=== PATIENT | female | born 1965 | race Caucasian/White ===

== ENCOUNTER 2017-01-17 20:36 | Emergency (ER) | payer OTHER ==
[~2017-01-17] VITALS: Ht 162.6 cm; Wt 65.0 kg
[2017-01-17 20:55] VITALS: BP 111/69; PULSE 85; RESP 16; TEMP 98.3; O2SAT 95
[2017-01-17] MEDS ORDERED: HALOPERIDOL LACTATE 5 MG/ML AMP IM ONE (21:00)
[2017-01-17] MEDS ORDERED: diphenhydrAMINE HCL 50 MG/ML VIAL IM ONE (21:00)
--- NOTE | 2017-01-17 21:09 | PD ---
HPI Chief Complaint: Psychiatric Symptoms Time Seen by Provider: 21:02 Travel History International Travel<30 days: No Contact w/Intl Traveler<30days: No Traveled to known affect area: No History of Present Illness HPI 51-year-old white female presents to emergency department under a Chan act by PD. Patient is heavily intoxicated. She is unable to give any meaningful history. According to the Chan act she had made homicidal and suicidal statements. Patient speech is very slurred. When asked questions she merely grabs at her neck. [facility] Past Medical History Medical History: Unable to Obtain Immunizations Current: Yes Tetanus Vaccination: Unknown Influenza Vaccination: No ?: Unknown Past Surgical History Surgical History: Unable to Obtain Social History Alcohol Use: Yes (socially) Tobacco Use: Yes Substance Use: No Allergies-Medications (Allergen,Severity, Reaction): Coded Allergies: No Known Allergies (Unverified , 01/17/17) Reported Meds & Prescriptions Reported Meds & Active Scripts Active No Active Prescriptions or Reported Medications Review of Systems ROS Limitations: Intoxication Physical Exam Narrative GENERAL: Well-nourished, well-developed patient. Smells of EtOH and appears intoxicated. SKIN: Warm and dry. HEAD: Normocephalic and atraumatic. EYES: No scleral icterus. No injection or drainage. ENT: No nasal drainage noted. Mucous membranes pink. Airway patent. NECK: Supple, trachea midline. Moves head freely without obvious discomfort. CARDIOVASCULAR: Regular rate and rhythm without murmurs, gallops, or rubs. RESPIRATORY: Breath sounds equal bilaterally. No accessory muscle use. GASTROINTESTINAL: Abdomen soft, non-tender, nondistended. EXTREMITIES: No cyanosis or edema. BACK: Nontender without obvious deformity. No CVA tenderness. NEURO: Patient is alert and oriented. no sensorimotor deficits. Ataxic with very slurred speech PSYCH: Unable to assess due to her level of intoxication Data Data Last Documented VS Vital Signs Date Time Temp Pulse Resp B/P Pulse Ox O2 Delivery O2 Flow Rate FiO2 01/17/17 20:55 98.3 85 16 111/69 95 Orders Haloperidol Inj (Haldol Inj) (01/17/17 21:00) Diphenhydramine Inj (Benadryl Inj) (01/17/17 21:00) Complete Blood Count With Diff (01/17/17 22:31) Comprehensive Metabolic Panel (01/17/17 22:31) Psych Screen (01/17/17 22:31) Drug Screen, Random Urine (01/17/17 22:31) Alcohol (Ethanol) (01/17/17 22:31) Salicylates (Aspirin) (01/17/17 22:31) Tylenol (Acetaminophen) (01/17/17 22:31) Labs Laboratory Tests Test 01/17/17 22:44 White Blood Count 3.9 TH/MM3 Red Blood Count 3.73 MIL/MM3 Hemoglobin 12.4 GM/DL Hematocrit 37.2 % Mean Corpuscular Volume 99.8 FL Mean Corpuscular Hemoglobin 33.2 PG Mean Corpuscular Hemoglobin 33.3 % Concent Red Cell Distribution Width 14.5 % Platelet Count 125 TH/MM3 Mean Platelet Volume 9.8 FL Neutrophils (%) (Auto) 40.4 % Lymphocytes (%) (Auto) 50.4 % Monocytes (%) (Auto) 6.5 % Eosinophils (%) (Auto) 2.0 % Basophils (%) (Auto) 0.7 % Neutrophils # (Auto) 1.6 TH/MM3 Lymphocytes # (Auto) 2.0 TH/MM3 Monocytes # (Auto) 0.3 TH/MM3 Eosinophils # (Auto) 0.1 TH/MM3 Basophils # (Auto) 0.0 TH/MM3 CBC Comment DIFF FINAL Differential Comment Sodium Level 143 MEQ/L Potassium Level 3.2 MEQ/L Chloride Level 109 MEQ/L Carbon Dioxide Level 25.4 MEQ/L Anion Gap 9 MEQ/L Blood Urea Nitrogen 6 MG/DL Creatinine 0.53 MG/DL Estimat Glomerular Filtration 121 ML/MIN Rate Random Glucose 78 MG/DL Calcium Level 7.9 MG/DL Total Bilirubin 0.4 MG/DL Aspartate Amino Transf 104 U/L (AST/SGOT) Alanine Aminotransferase 85 U/L (ALT/SGPT) Alkaline Phosphatase 106 U/L Total Protein 7.7 GM/DL Albumin 2.9 GM/DL Salicylates Level LESS THAN 1.7 MG/DL Acetaminophen Level LESS THAN 2.0 MCG/ML Ethyl Alcohol Level 237 MG/DL MDM Medical Decision Making Medical Screen Exam Complete: Yes Emergency Medical Condition: Yes Medical Record Reviewed: Yes Interpretation(s) Laboratory Tests Test 01/17/17 22:44 White Blood Count 3.9 TH/MM3 Red Blood Count 3.73 MIL/MM3 Hemoglobin 12.4 GM/DL Hematocrit 37.2 % Mean Corpuscular Volume 99.8 FL Mean Corpuscular Hemoglobin 33.2 PG Mean Corpuscular Hemoglobin 33.3 % Concent Red Cell Distribution Width 14.5 % Platelet Count 125 TH/MM3 Mean Platelet Volume 9.8 FL Neutrophils (%) (Auto) 40.4 % Lymphocytes (%) (Auto) 50.4 % Monocytes (%) (Auto) 6.5 % Eosinophils (%) (Auto) 2.0 % Basophils (%) (Auto) 0.7 % Neutrophils # (Auto) 1.6 TH/MM3 Lymphocytes # (Auto) 2.0 TH/MM3 Monocytes # (Auto) 0.3 TH/MM3 Eosinophils # (Auto) 0.1 TH/MM3 Basophils # (Auto) 0.0 TH/MM3 CBC Comment DIFF FINAL Differential Comment Sodium Level 143 MEQ/L Potassium Level 3.2 MEQ/L Chloride Level 109 MEQ/L Carbon Dioxide Level 25.4 MEQ/L Anion Gap 9 MEQ/L Blood Urea Nitrogen 6 MG/DL Creatinine 0.53 MG/DL Estimat Glomerular Filtration 121 ML/MIN Rate Random Glucose 78 MG/DL Calcium Level 7.9 MG/DL Total Bilirubin 0.4 MG/DL Aspartate Amino Transf 104 U/L (AST/SGOT) Alanine Aminotransferase 85 U/L (ALT/SGPT) Alkaline Phosphatase 106 U/L Total Protein 7.7 GM/DL Albumin 2.9 GM/DL Salicylates Level LESS THAN 1.7 MG/DL Acetaminophen Level LESS THAN 2.0 MCG/ML Ethyl Alcohol Level 237 MG/DL Differential Diagnosis MDM: High Differential diagnoses: Schizophrenia, schizoaffective disorder, bipolar, anxiety, depression, adjustment reaction, mood disorder NOS, ODD, depressive disorder NOS, dementia, dementia with agitation, psychosis NOS, substance induced mood disorder, intermittent explosive disorder, Asperger syndrome, infection,electrolyte abnormality, malingering. Narrative Course Mental health screening discussed with the patient. Psychiatric screen ordered. The patient's been medically cleared. Patient is given potassium 20 mEq by mouth. This is alcohol induced mood disorder, medical clearance for psychiatric admission Diagnosis Primary Impression: Alcohol-induced mood disorder Additional Impression: Medical clearance for psychiatric admission Scripts No Active Prescriptions or Reported Meds Condition: Stable Santi Frey Jan 17, 2017 21:09
[2017-01-17 23:20] LABS: AUTOMATED NEUTROPHIL # 1.6 TH/MM3 (1.8-7.7); BASOPHIL % 0.7 % (0.0-2.0); EOSINOPHIL # 0.1 TH/MM3 (0-0.4); HEMATOCRIT 37.2 % (35.0-46.0); HEMO FLAGS DIFF FINAL; LYMPH % 50.4 % (9.0-44.0); MEAN CELL VOLUME 99.8 FL (80.0-100.0); MEAN CORPUSCULAR HEMOGLOBIN 33.2 PG (27.0-34.0); MEAN CORPUSCULAR HGB CONC 33.3 % (32.0-36.0); MONO % 6.5 % (0.0-8.0); NEUT % 40.4 % (16.0-70.0); PLATELET COUNT 125 TH/MM3 (150-450); RED BLOOD COUNT 3.73 MIL/MM3 (4.00-5.30); RED CELL DISTRIBUTION WIDTH 14.5 % (11.6-17.2); WHITE BLOOD COUNT 3.9 TH/MM3 (4.0-11.0)
[2017-01-17 23:29] LABS: ANION GAP 9 MEQ/L (5-15); AST (GOT) 104 U/L (15-37); BICARBONATE 25.4 MEQ/L (21.0-32.0); BLOOD UREA NITROGEN 6 MG/DL (7-18); CHLORIDE 109 MEQ/L (98-107); GLOMERULAR FILTRATION RATE 121 ML/MIN (>89); POTASSIUM 3.2 MEQ/L (3.5-5.1); SODIUM (NA) 143 MEQ/L (136-145)
[2017-01-17 23:32] LABS: ALKALINE PHOSPHATASE 106 U/L (45-117); ALT (GPT) 85 U/L (10-53); TOTAL BILIRUBIN ADULT 0.4 MG/DL (0.2-1.0)
[2017-01-17 23:37] LABS: ACETAMINOPHEN LESS THAN 2.0 MCG/ML (10.0-30.0)
[2017-01-18] MEDS ORDERED: POTASSIUM CHLORIDE 20 MEQ CONTROLLED RELEASE TAB PO ONE
[2017-01-18 09:31] VITALS: BP 106/63; PULSE 79; RESP 16; O2SAT 98
[2017-01-18 09:55] LABS: AMPHETAMINE, URINE NEG (NEG); BARBITURATES, URINE NEG (NEG); COCAINE, URINE NEG (NEG)
[2017-01-18 11:49] VITALS: BP 111/65; PULSE 65; RESP 17; O2SAT 93
[2017-01-18 14:47] VITALS: BP 119/72; PULSE 70; RESP 18; TEMP 98.6; O2SAT 96
[2017-01-18 15:32] VITALS: BP 119/72; TEMP 98.6
--- NOTE | 2017-01-18 15:40 | PD.PSY.CON ---
Provisional Diagnosis Admission Date Dan[place] I. Alcohol-induced mood disorder F10.94 alcohol dependence with intoxication F 10.220 History of Present Illness Service Psychiatry Consult Requested By EDMD Reason for Consult Dustin act Primary Care Physician No Primary Care Physician HPI Patient is a 51-year-old white female comes her under Chan act by the [facility] dated 01/17/17 at 838 the document reviewed basically stating that Imani made statements to people she met tonyakov that she would cut their throats as well stated that she wanted to cut her own throat. Imani also kept grabbing her own throat in an attempt to choke herself and pull her throat out. Patient seen screen in the ED blood alcohol level of 237 urine toxicology negative. She seen in her room on J pod with nurse Samantha davila she is sitting in her bed somewhat angry and irritable. Minimizes her alcohol consumption she states she drinks "once or twice" a week that she might drink a half a pint or 2. Denies being an alcoholic. She denies any past psychiatric contact hospitalization psychotropic medications. She denies suicidality homicidality voices or visions. She denies other drug use. She did state that she was she had one child who is now . Patient's face is flushed and quite puffy the appearance of a chronic alcohol abuser. Though she denies it. In any event at this time patient does not meet Chan criteria will lift Chan act allow patient to be discharged herself. No Rx by me. Strong recommendation voluntary assess Mr. Nithya pittman outpatient substance abuse assessment. Strong recommendation AA Review of Systems Constitutional: DENIES: Diaphoretic episodes, Fatigue, Fever, Weight gain, Weight loss, Chills, Dizziness, Change in appetite, Night Sweats Endocrine: DENIES: Abnorml menstrual pattern, Heat/cold intolerance, Polydipsia , Polyuria, Polyphagia Eyes: DENIES: Blurred vision, Diplopia, Eye inflammation, Eye pain, Vision loss , Photosensitivity, Double Vision Ears, nose, mouth, throat: DENIES: Tinnitus, Hearing loss, Vertigo, Nasal discharge, Oral lesions, Throat pain, Hoarseness, Ear Pain, Running Nose, Epistaxis, Sinus Pain, Toothache, Odynophagia Respiratory: DENIES: Apneas, Cough, Snoring, Wheezing, Hemoptysis, Sputum production, Shortness of breath Cardiovascular: DENIES: Chest pain, Palpitations, Syncope, Dyspnea on Exertion , PND, Lower Extremity Edema, Orthopnea, Claudication Gastrointestinal: DENIES: Abdominal pain, Black stools, Bloody stools, Constipation, Diarrhea, Nausea, Vomiting, Difficulty Swallowing, Anorexia Genitourinary: DENIES: Abnormal vaginal bleeding, Dysmenorrhea, Dyspareunia, Sexual dysfunction, Urinary frequency, Urinary incontinence, Urgency, Hematuria , Dysuria, Nocturia, Vaginal discharge Musculoskeletal: DENIES: Joint pain, Muscle aches, Stiffness, Joint Swelling, Back pain, Neck pain Integumentary: DENIES: Abnormal pigmentation, Pruritus, Rash, Nail changes, Breast masses, Breast skin changes, Nipple discharge Hematologic/lymphatic: DENIES: Bruising, Lymphadenopathy Immunologic/allergic: DENIES: Eczema, Urticaria Neurologic: DENIES: Abnormal gait, Headache, Localized weakness, Paresthesias, Seizures, Speech Problems, Tremor, Poor Balance Psychiatric: DENIES: Anxiety, Confusion, Mood changes, Depression, Hallucinations, Agitation, Suicidal Ideation, Homicidal Ideation, Delusions Past Family Social History Coded Allergies: No Known Allergies (Unverified , 01/17/17) Past Medical History Patient medically cleared ED No Active Prescriptions or Reported Meds Family History Denies history of physical or sexual abuse, denies mental health history and family of origin Social History Patient homeless longtime alcohol abuser Patient's Strengths (min. 2) Patient verbal able axis health care Physical Exam Patient seen screen in ED exam reviewed and agreed with patient medically cleared Vital Signs Vital Signs Date Time Temp Pulse Resp B/P Pulse Ox O2 Delivery O2 Flow Rate FiO2 01/18/17 14:47 98.6 70 18 119/72 96 01/18/17 11:49 Room Air Mental Status Examination Alert oriented angry irritable disheveled white female facial features quite puffy and injected. Uncooperative. With poor eye contact Appearance Disheveled with red puffy face Speech: Pressured, Fast Orientation: x3 Memory: Unremarkable Thought Process: Linear Thought Content: Unremarkable, Other (marked denial of the severity of her alcohol abuse) Language [place] Fund of Knowledge Poor Hallucination Type: None (denies) Attention and Concentration: Other (poor) Suicidal Ideation: No (denies) Previous Suicide Attempts: No (denies) Homicidal Ideation: No (denies) Previous Homicide Attempts: No (denies) Insight: Poor Judgment: Poor Affect: Other (slight increased range intensity) Mood: Angry, Oppositional, Irritable Motor Activity: Normal gait Assessment & Plan Problem List: (1) Alcohol-induced mood disorder ICD Code: F10.94 (2) Alcohol dependence with intoxication ICD Code: F10.229 Assessment & Plan Estimated LOS: days this time patient does not meet Chan criteria will lift Chan act. It is okay by psych for discharge or medically clear and stable, no Rx by me, strong referral [facility] [place] voluntary outpatient substance abuse assessment, strong referral to AA Discharge Planning See above Request HC Surrog/Guard Advoc?: No Problem Qualifiers (1) Alcohol dependence with intoxication: Qualified Code: F10.220 - Alcohol dependence with uncomplicated intoxication Sukh Manrique MD Jan 18, 2017 15:39
== END 2017-01-18 16:36 | disposition home or self-care (01) ==
LOC: NEPD 20:36 → NEPJ 01-18 16:36
DX: F10.94 Alcohol use, unspecified with alcohol-induced mood disorder (principal); Z72.0 Tobacco use
CPT/HCPCS: 80053; 80307; 85025; 96372; 99284; J1200; J1630

== ENCOUNTER 2017-02-18 02:07 | Emergency (ER) | payer OTHER ==
[~2017-02-18] VITALS: Ht 167.6 cm; Wt 67.0 kg
[2017-02-18 02:26] VITALS: BP 92/54; PULSE 83; RESP 12; O2SAT 95
[2017-02-18 02:34] VITALS: PULSE 84
--- NOTE | 2017-02-18 02:43 | PD ---
HPI Chief Complaint: Alcohol/Drug Intoxication Time Seen by Provider: 02:39 Travel History International Travel<30 days: No Contact w/Intl Traveler<30days: No Traveled to known affect area: No History of Present Illness HPI 51-year-old white female presents to emergency department under act by PD. The patient was found entering a home and [place] by homeowners. According to PD in the patient she has been traveling from [place] to [place] and now on her way to [place]. She states that she had consumed a large quantity of alcohol. [facility] in the [place] and decided to stop at a house. She states that the front doors open and she decided to let herself in. She stated that she was hoping that the homeowners would allow her to use the phone. PD states that the homeowner called the police and the patient was placed under act. The patient is too intoxicated to care for herself on the streets [facility]. She denies any suicidal homicidal ideation. She states that she drinks on occasion but is not an alcoholic. She does not do any other drugs. She has no intention of hurting herself or hurting anyone. She states that she is merely was moving south towards [place] in search of work. [facility] Past Medical History Medical History: Denies Significant Hx Immunizations Current: Yes Tetanus Vaccination: < 5 Years ?: Not Past Surgical History Surgical History: No Previous Surgery Social History Alcohol Use: Yes Tobacco Use: No Substance Use: No Allergies-Medications (Allergen,Severity, Reaction): Coded Allergies: No Known Allergies (Unverified , 01/17/17) Reported Meds & Prescriptions Reported Meds & Active Scripts Active No Active Prescriptions or Reported Medications Review of Systems Except as stated in HPI: all other systems reviewed are Neg Physical Exam Narrative GENERAL: Well-nourished, well-developed patient. Patient is intoxicated. She smells of EtOH SKIN: Warm and dry. HEAD: Normocephalic and atraumatic. EYES: No scleral icterus. No injection or drainage. ENT: No nasal drainage noted. Mucous membranes pink. Airway patent. NECK: Supple, trachea midline. Moves head freely without obvious discomfort. CARDIOVASCULAR: Regular rate and rhythm without murmurs, gallops, or rubs. RESPIRATORY: Breath sounds equal bilaterally. No accessory muscle use. GASTROINTESTINAL: Abdomen soft, non-tender, nondistended. EXTREMITIES: No cyanosis or edema. BACK: Nontender without obvious deformity. No CVA tenderness. NEURO: Patient is alert and oriented. no sensorimotor deficits. Ataxic. Slurred speech. PSYCH: No delusions. No auditory or visual hallucinations. Data Data Last Documented VS Vital Signs Date Time Temp Pulse Resp B/P Pulse Ox O2 Delivery O2 Flow Rate FiO2 02/18/17 02:34 84 Room Air 02/18/17 02:26 12 92/54 95 MDM Medical Decision Making Medical Screen Exam Complete: Yes Emergency Medical Condition: Yes Medical Record Reviewed: Yes Differential Diagnosis Differential diagnoses: Alcohol intoxication, substance abuse, electrolyte abnormality, malingering Narrative Course The patient does not appear to be a threat to herself or others. She is heavily intoxicated. Once the patient is sober she'll be consider medically stable and be discharged. This is alcohol intoxication, [place] act Diagnosis Primary Impression: Alcohol dependence with intoxication Qualified Code: F10.220 - Alcohol dependence with uncomplicated intoxication Additional Impression: [place]man act Patient Instructions: General Instructions Additional Instructions: Rest. Increase fluids. Avoid alcohol. Avoid illegal substances. Follow-up with [facility] for detox. Do not operate a car or any heavy machinery under the influence of alcohol or drugs. Follow-up with a medical doctor this week. Return to the ER for emergencies Med/Other Pt SpecificInfo: No Meds Exist/No RX given Scripts No Active Prescriptions or Reported Meds Disposition: 01 DISCHARGE HOME Condition: Stable Santi Frey Feb 18, 2017 02:43
== END 2017-02-18 06:49 | disposition home or self-care (01) ==
LOC: NEPD 02:07
DX: F10.220 Alcohol dependence with intoxication, uncomplicated (principal)
CPT/HCPCS: 99281